=== PATIENT | female | born 2000 | race Two or more races ===

== ENCOUNTER 2024-04-09 14:51 | Emergency (ER) | payer MEDICAID, OTHER ==
[~2024-04-09] VITALS: Ht 157.5 cm; Wt 43.6 kg
[2024-04-09] MEDS ORDERED: ALBU108A5 IN (16:26)
[2024-04-09 17:38] VITALS: BP 97/63; PULSE 80; RESP 16; TEMP 98.3; O2SAT 96
== END 2024-04-09 17:57 | disposition home or self-care (01) ==
LOC: ER 14:51
DX: U07.1 COVID-19 (principal); R07.9 Chest pain, unspecified; M79.10 Myalgia, unspecified site
CPT/HCPCS: 71046; 93005